=== PATIENT | female | born 1985 | race American Indian/Alaskan Native ===

== ENCOUNTER 2017-08-01 15:18 | Emergency (ER) | payer MEDICARE ==
--- NOTE | 2017-08-01 16:01 | Emergency Department Report ---
ED Psych HPI - General Chief Complaint: Psych Stated Complaint: MH EVAL Time Seen by Provider: 08/01/17 15:30 Source: police, EMS Mode of arrival: Ambulatory Limitations: Other ( extremely agitated and yelling) - History of Present Illness Initial Comments: Condition is a 31-year-old female that presents emergency room for mental evaluation. Patient was brought in by EMS and the police for psychotic behaviors and agitation. Patient being very aggressive and agitated towards everybody. Patient yelling out that she wants to kill everyone. Patient is violent and hostile towards staff. Patient was brought by EMS and the police MD Complaint: altered mental status -: Sudden History of same: Yes Quality: constant Improves With: none Worsens With: none Context: not taking psychiatric, significant life stressor Associated Symptoms: denies other symptoms Treatments Prior to Arrival: none, placed on mental he - Related Data Home Medications Medication Instructions Recorded Confirmed Last Taken Divalproex Sodium [Divalproex 500 mg PO QHS 12/23/16 12/23/16 1 Day Ago Sodium ER] ~12/22/16 LORazepam [Ativan] 0.5 mg PO QHS 12/23/16 12/23/16 1 Day Ago ~12/22/16 RisperDAL 2 mg PO QHS 12/23/16 12/23/16 1 Day Ago ~12/22/16 Allergies Allergy/AdvReac Type Severity Reaction Status Date / Time No Known Allergies Allergy Verified 04/07/15 12:59 ED Review of Systems ROS: Stated complaint: MH EVAL Other details as noted in HPI Comment: Unobtainable due to pts medical conditions ED Past Medical Hx - Past Medical History Previous Medical History?: Yes Hx Psychiatric Treatment: Yes (bipolar) - Surgical History Past Surgical History?: No - Family History Family history: no significant - Social History Smoking Status: Never Smoker Substance Use Type: None - Medications Home Medications: Home Medications Medication Instructions Recorded Confirmed Last Taken Type Divalproex Sodium [Divalproex 500 mg PO QHS 12/23/16 12/23/16 1 Day Ago History Sodium ER] ~12/22/16 LORazepam [Ativan] 0.5 mg PO QHS 12/23/16 12/23/16 1 Day Ago History ~12/22/16 RisperDAL 2 mg PO QHS 12/23/16 12/23/16 1 Day Ago History ~12/22/16 ED Physical Exam - General Limitations: Other ( patient initially agitated during initial attempt to examine the patient. Exam done after patient calmed down after Geodon) General appearance: alert, other - Head Head exam: Present: atraumatic, normocephalic - Eye Eye exam: Present: normal appearance - ENT ENT exam: Present: mucous membranes moist - Neck Neck exam: Present: normal inspection - Respiratory Respiratory exam: Present: normal lung sounds bilaterally. Absent: respiratory distress - Cardiovascular Cardiovascular Exam: Present: regular rate, normal rhythm. Absent: systolic murmur, diastolic murmur, rubs, gallop - GI/Abdominal GI/Abdominal exam: Present: soft, normal bowel sounds - Extremities Exam Extremities exam: Present: normal inspection - Back Exam Back exam: Present: normal inspection - Neurological Exam Neurological exam: Present: alert, oriented X3 - Psychiatric Psychiatric exam: Present: depressed, agitated - Skin Skin exam: Present: warm, dry, intact, normal color. Absent: rash ED Course - Reevaluation(s) Reevaluation #1: Patient extremely agitated and hostile towards all staff. We'll give patient 20 of Geodon 08/01/17 15:30 Reevaluation #2: Patient much more calm at this time. Patient answering all questions. Patient denies suicidal and homicidal ideation. Patient will remain on a 1013 for acute psychosis until mentally health and psychiatry can mentally clear patient. Patient's exam done at this time 08/01/17 18:25 ED Medical Decision Making - Lab Data Result diagrams: 08/01/17 17:08 08/01/17 17:08 - Medical Decision Making She is medically cleared and is awaiting psychiatric evaluation. Patient to be transferred and remain on a 1013. Patient to be transferred to appropriate psych facility. - Differential Diagnosis acute psychosis. Agitation. Depression. Medical noncompliance. Critical care attestation.: If time is entered above; I have spent that time in minutes in the direct care of this critically ill patient, excluding procedure time. ED Disposition Clinical Impression: Agitation, Acute psychosis Disposition: [id number] PSY HOSP/PSY UNIT Is pt being admited?: No Does the pt Need Aspirin: No Condition: Stable Referrals: PRIMARY CARE, [Primary Care Provider] - 3-5 Days Time of Disposition: 18:32
[2017-08-01 17:29] LABS: Basophils % (Auto) 0.1 % (0.0-1.8); Eosinophils % (Auto) 0.1 % (0.0-4.3); Hematocrit 39.5 % (30.3-42.9); Hemoglobin 13.1 gm/dl (10.1-14.3); Lymphocytes # (Auto) 1.1 K/mm3 (1.2-5.4); Lymphocytes % (Auto) 11.7 % (13.4-35.0); Mean Corpuscular HGB Conc 33 % (30-34); Mean Corpuscular Hemoglobin 33 pg (28-32); Mean Corpuscular Volume 98 fl (79-97); Monocytes # (Auto) 0.5 K/mm3 (0.0-0.8); Monocytes % (Auto) 5.1 % (0.0-7.3); Platelet Count 258 K/mm3 (140-440); Red Blood Count 4.02 M/mm3 (3.65-5.03); Red Cell Distribution Width 14.1 % (13.2-15.2)
[2017-08-01 17:39] LABS: BUN/Creatinine Ratio 13; Blood Urea Nitrogen 10 mg/dL (7-17); Calcium 9.2 mg/dL (8.4-10.2); Hemolysis Index 3
[2017-08-01 17:56] LABS: Bilirubin,Urine NEG (Negative); Blood,Urine NEG (Negative); Color,Urine Yellow (Yellow); Mucus,Urine FEW /HPF; Protein,Urine <15 mg/dL mg/dL (Negative); Urobilinogen,Urine < 2.0 mg/dL (<2.0)
[2017-08-01 18:02] LABS: Amphetamine Screen,Urine PRESUMPTIVE NEGATIVE; Benzodiazepines Screen,Urine PRESUMPTIVE NEGATIVE; Cannabinoid Screen,Urine PRESUMPTIVE NEGATIVE; Cocaine Screen,Urine PRESUMPTIVE NEGATIVE; Methadone Screen,Urine PRESUMPTIVE NEGATIVE; Opiate Screen,Urine PRESUMPTIVE NEGATIVE
[2017-08-01 21:31] VITALS: BP 106/64
[2017-08-01 23:16] LABS: HCG Qualitative,Urine Negative (Negative)
== END 2017-08-02 00:15 ==
LOC: EEVIPCON 15:18 → ED 15:18
DX: F23 Brief psychotic disorder (principal); R45.1 Restlessness and agitation; F31.9 Bipolar disorder, unspecified
CPT/HCPCS: 36415; 80048; 80307; 81001; 81025; 85025; 99285; G0480; 80320